=== PATIENT | female | born 1965 | race Two or more races ===

== ENCOUNTER 2024-05-23 11:45 | Emergency (ER) | payer MEDICAID, OTHER ==
[~2024-05-23] VITALS: Ht 157.5 cm; Wt 68.2 kg
[2024-05-23] MEDS: LORazepam 1 MG tablet PO ONE (12:27)
[2024-05-23] MEDS ORDERED: ACET-3447 PO (12:56)
[2024-05-23] MEDS ORDERED: HYDR-3686 PO (12:56)
[2024-05-23] MEDS ORDERED: ASPI81TA52 PO (12:56)
[2024-05-23] MEDS ORDERED: PRAZ1CAP5 PO (12:56)
[2024-05-23] MEDS ORDERED: ESCI20TA39 PO (12:56)
[2024-05-23] MEDS ORDERED: acetaminophen 325mg tablet PO PRN (13:10)
[2024-05-23 14:08] LABS: BILIRUBIN,URINE NEGATIVE (Neg); CLARITY,URINE CLEAR (Clear); COLOR,URINE YELLOW (Yellow); GLUCOSE, URINE NEGATIVE (Neg); KETONES,URINE NEGATIVE (Neg); LEUKOCYTE ESTERASE ,URINE NEGATIVE (Neg); NITRITES, URINE NEGATIVE (Neg); OCCULT BLOOD,URINE NEGATIVE (Neg); PH,URINE 6.5 (4.8-8.0); PROTEIN,URINE NEGATIVE (Neg); UROBILINOGEN,URINE 0.2 E.U/dL (0.2-1.0)
[2024-05-23 14:14] LABS: UA COLLECTION TYPE CLN CATCH MIDSTREAM
[2024-05-23 15:20] LABS: URINE AMPHETAMINE SCREEN NEGATIVE (Neg); URINE BARBITUATE SCREEN NEGATIVE (Neg); URINE BENZODIAZEPINES SCREEN NEGATIVE (Neg); URINE CANNABINOID SCREEN NEGATIVE (Neg); URINE COCAINE SCREEN NEGATIVE (Neg); URINE METHADONE SCREEN NEGATIVE (Neg); URINE OPIATE SCREEN NEGATIVE (Neg); URINE PHENCYCLIDINE SCREEN NEGATIVE (Neg)
[2024-05-23 15:27] LABS: BASOPHILS # (AUTO) 0.1 X10'3 (0-0.2); BASOPHILS % (AUTO) 1.1 % (0-1); EOSINOPHILS % (AUTO) 0.1 % (0-6); HEMATOCRIT 39.1 % (35.0-45.0); LYMPHOCYTES # (AUTO) 2.7 X10'3 (1.1-4.8); LYMPHOCYTES % (AUTO) 22.8 % (21-51); MEAN CORPUSCULAR HEMOGLOBIN 29.8 PG (27.0-31.0); MEAN CORPUSCULAR HGB CONC 33.2 g/dL (33.0-36.5); MEAN CORPUSCULAR VOLUME 89.9 FL (78-98); MEAN PLATELET VOLUME 7.5 FL (7.4-10.4); MONOCYTES # (AUTO) 0.5 X10'3 (0-0.9); NEUTROPHILS # (AUTO) 8.6 X10'3 (1.8-7.7); PLATELET COUNT 456 X10'3 (140-440); RED BLOOD COUNT 4.35 X10'6 (4.20-5.60); RED CELL DISTRIBUTION WIDTH 14.7 % (11.5-14.5)
[2024-05-23 15:37] LABS: ALBUMIN 3.8 G/DL (3.4-5.0); ANION GAP 9 (8-16); BLOOD UREA NITROGEN 14 MG/DL (7-18); BUN/CREATININE RATIO 20.9 (10.0-20.0); CALCIUM 9.2 MG/DL (8.5-10.1); CHLORIDE 104 MMOL/L (99-107); CREATININE 0.67 MG/DL (0.40-0.90); ETHANOL < 10 MG/DL (<10); GLUCOSE 135 MG/DL (70-104); POTASSIUM 3.4 MMOL/L (3.5-5.1); SODIUM 139 MMOL/L (135-145); TOTAL CARBON DIOXIDE 26.5 MMOL/L (24-32); eCRCL 73 ML/MIN; eGFR > 90 ML/MIN
[2024-05-23] MEDS: ondansetron 4mg rapidly disintigrating tab PO STA (17:09)
[2024-05-23] MEDS: loperamide 2mg capsule PO STA (17:10)
[2024-05-23] MEDS: hydrOXYzine 25 MG tablet PO SCH (17:10)
[2024-05-23 18:00] VITALS: BP 117/71; PULSE 95; RESP 15; TEMP 97.9; O2SAT 98
[2024-05-23] MEDS ORDERED: prazosin 1mg capsule PO SCH (21:00)
[2024-05-24] MEDS ORDERED: aspirin 81mg, enteric-coated 1 TAB TABLET.DR PO SCH (08:00)
[2024-05-24] MEDS ORDERED: ESCITALOPRAM 10 mg tablet 10 MG TABLET PO SCH (08:00)
== END 2024-05-23 17:55 | disposition home or self-care (01) ==
LOC: ER 11:47
DX: F32.A Depression, unspecified (principal); R45.851 Suicidal ideations; Z88.8 Allergy status to other drugs, medicaments and biological substances; Z20.822 Contact with and (suspected) exposure to COVID-19; Z79.82 Long term (current) use of aspirin
CPT/HCPCS: 36415; 80048; 80305; 80320; 81003; 85025; 87811; 99284; Q0177

== ENCOUNTER 2025-03-27 08:01 | Emergency (ER) | payer MEDICARE, OTHER ==
[~2025-03-27] VITALS: Ht 157.5 cm; Wt 72.7 kg
[~2025-03-27 08:01] MED LIST: ACET-3447 PO; ASPI81TA52 PO; ESCI20TA39 PO; HYDR-3686 PO; PRAZ1CAP5 PO
[2025-03-27 08:07] VITALS: TEMP 98.2
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
[2025-03-27] MEDS: normal saline 1000ml 1,000 ML IV ONE (09:21)
[2025-03-27] MEDS: ketorolac trometh 15mg/ml vial 15 MG/ML ML IV ONE (09:22)
[2025-03-27] MEDS: ondansetron/PF 4mg/2ml inj IV ONE (09:23)
[2025-03-27] MEDS: morphine 4 MG/ML inj SYRINge IV ONE (09:24)
[2025-03-27 09:30] LABS: MEAN PLATELET VOLUME 7.6 FL (7.4-10.4); RED CELL DISTRIBUTION WIDTH 13.4 % (11.5-14.5)
[2025-03-27 09:52] LABS: CREATININE 0.73 MG/DL (0.40-0.90); TOTAL CARBON DIOXIDE 27.7 MMOL/L (24-32); eCRCL 66 ML/MIN; eGFR 82 ML/MIN
[2025-03-27] MEDS ORDERED: ONDA-243 PO ×2 (11:02→15:51)
[2025-03-27] MEDS ORDERED: OXYC-658 PO ×2 (11:02→15:51)
[2025-03-27 11:33] VITALS: BP 122/81; PULSE 80; RESP 14; O2SAT 99
== END 2025-03-27 11:35 | disposition home or self-care (01) ==
LOC: ER 08:02
DX: R11.2 Nausea with vomiting, unspecified (principal); G89.18 Other acute postprocedural pain; E87.6 Hypokalemia; E86.0 Dehydration; Z88.8 Allergy status to other drugs, medicaments and biological substances; Z85.3 Personal history of malignant neoplasm of breast; Z79.82 Long term (current) use of aspirin; Z79.899 Other long term (current) drug therapy
CPT/HCPCS: 36415; 80053; 83690; 85025; 96361; 96374; 96375; 99284; J1885; J2270; J2405; J7030